=== PATIENT | female | born 1990 | race Two or more races ===

== ENCOUNTER 2016-12-05 08:26 | Emergency (ER) | payer OTHER ==
[2016-12-05 08:35] VITALS: BP 150/85; PULSE 75; RESP 18; TEMP 98; O2SAT 96
[2016-12-05 09:02] LABS: COLOR YELLOW; LEUKOCYTE ESTERASE,URINE 2+ (NEGATIVE); NITRITE,URINE POSITIVE (NEGATIVE); PH,URINE 7.5 (5.0-7.5)
--- NOTE | 2016-12-05 09:18 | UCPHY ---
H & P Time Seen by Provider: 12/05/16 08:29 Patient Type: Established HPI/ROS: 26-year-old female presents complaining of painful urination which began approximately a week ago but became markedly worse over the last 24 hours. No fevers no chills no flank pain. Review of systems As per HPI General no fever no chills no weakness HEENT no eye pain no eye discharge. No eye redness, no sore throat Respiratory no cough, no shortness of breath Cardiac no chest pain, no peripheral edema GI no abdominal pain, no diarrhea, no constipation, no nausea, no vomiting no flank pain, no hematuria, positive dysuria Musculoskeletal no myalgias, no joint pain Heme no easy bruising, no easy bleeding Endo no polyuria, no polydipsia Skin no rashes, no pruritus Neuro no syncope, no dizziness, no headaches Psych is no suicidal ideation, no homicidal ideation Social History: Denies excessive alcohol or drug use Smoking Status: Never smoked Physical Exam: 26-year-old Female alert and oriented in no acute distress nontoxic appearance, afebrile Atraumatic normocephalic Neck supple Lungs clear to auscultation bilaterally Heart regular rate and rhythm Abdomen normoactive bowel sounds soft mild suprapubic tenderness no guarding no rebound Back no CVA tenderness Extremities no cyanosis clubbing or edema Skin no rash Constitutional: Initial Vital Signs Temperature (C) 36.6 C 12/05/16 08:34 Heart Rate 75 12/05/16 08:34 Respiratory Rate 18 12/05/16 08:34 Blood Pressure 150/85 H 12/05/16 08:34 O2 Sat (%) 96 12/05/16 08:34 O2 Delivery Mode Room Air Allergies/Adverse Reactions: No Known Allergies Allergy (Unverified 08/23/16 11:07) Home Medications: Medication Instructions Recorded Bcp 08/23/16 Cephalexin 500 mg PO TID #21 tablet 12/05/16 Medical Decision Making ED Course/Re-evaluation: Patient seen and evaluated for painful urination of approximately 1 week duration markedly worse over the last 1-2 days Urinalysis Positive WBCs positive nitrite positive bacteria Differential diagnosis Urinary tract infection Impression UTI Plan Cephalexin Follow-up PCP - Data Points Laboratory Results: 12/05/16 12/05/16 08:50 08:50 Urine Color YELLOW Urine Appearance CLEAR Urine pH 7.5 (5.0-7.5) Ur Specific Bulger 1.015 (1.002-1.030) Urine Protein 1+ H (NEGATIVE) Urine Ketones NEGATIVE (NEGATIVE) Urine Blood 2+ H (NEGATIVE) Urine Nitrate POSITIVE H (NEGATIVE) Urine Bilirubin NEGATIVE (NEGATIVE) Urine Urobilinogen 0.2 EU EU (0.2-1.0) Ur Leukocyte Esterase 2+ H (NEGATIVE) Urine RBC 10-15 /hpf H /hpf (0-3) Urine WBC 50-182 /hpf H /hpf (0-3) Ur Epithelial Cells TRACE /lpf /lpf (NONE-1+) Urine Bacteria 2+ /hpf H /hpf (NONE SEEN) Ur Culture Indicated? INDICATED H (NI) Urine Glucose NEGATIVE (NEGATIVE) Urine Test NEGATIVE Departure - Departure Disposition: Home, Routine, Self-Care Clinical Impression: Urinary tract infection Condition: Good Instructions: Urinary Tract Infection in Women (ED) Referrals: NONE *PRIMARY CARE P,. [Primary Care Provider] - As per Instructions Stand Alone Forms: Work Excuse Prescriptions: Cephalexin 500 mg PO TID #21 tablet - PQRS PQRS Measurement: Not applicable
[2016-12-05 09:19] LABS: BACTERIA 2+ /hpf (NONE SEEN); WBC,URINE 50-182 /hpf (0-3)
== END 2016-12-05 09:27 | disposition home or self-care (01) ==
LOC: CED 08:26
DX: N39.0 Urinary tract infection, site not specified (principal)
CPT/HCPCS: 81003-PO; 81015-PO; 81025-PO; 99214-PO; G0463-PO